=== PATIENT | female | born 2005 | race Caucasian/White ===

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

== ENCOUNTER → 2025-01-07 | Outpatient (CLI) | payer MEDICAID, SELFPAY | END | disposition home or self-care (01) | LOC: BFHLAB 10:23 | PROVIDERS: PCP Family Medicine; Visit Provider Nurse Practitioner Family | DX: R59.1 Generalized enlarged lymph nodes (principal); N39.0 Urinary tract infection, site not specified; Z20.9 Contact with and (suspected) exposure to unspecified communicable disease | CPT/HCPCS: 36415; 86617; 87086; 87088; 87186; 87491; 87591 ==

== ENCOUNTER → 2025-02-22 | Outpatient (CLI) | payer MEDICAID, SELFPAY ==
[2025-02-25 14:08] LABS: EBV Acute VCA IgM < 36.0 U/mL (0.0-35.9); EBV Nuclear Antigen IgG > 600.0 U/mL (0.0-17.9); EBV-VCA IgG 53.4 U/mL (0.0-17.9)
== END | disposition home or self-care (01) ==
LOC: LAB 15:30
PROVIDERS: PCP Family Medicine; Referring Provider Otolaryngology; Visit Provider Otolaryngology
DX: I88.9 Nonspecific lymphadenitis, unspecified (principal)
CPT/HCPCS: 36415; 86664; 86665